=== PATIENT | female | born 1990 | race African-American/Black ===

== ENCOUNTER 2019-05-06 03:38 | Emergency (ER) | payer SELFPAY ==
[~2019-05-06] VITALS: Ht 170.2 cm; Wt 94.3 kg
--- NOTE | 2019-05-06 03:56 | NUR ---
ED Nurse Note: pt presents to ED c/o a cough x 3.5 weeks and is concerned because every time she coughs, she is unable to control her bladder. pt states she went to urgent care recently and was given an inhaler, tessalon perles and abx for the cough. pt also reports that she had a flu test and UA, both were negative. pt denies pain but states she is feeling fatigued and sore.
[2019-05-06 03:57] VITALS: BP 95/64
[2019-05-06] MEDS ORDERED: PROMETHAZINE-C118 M1 ORAL (04:00)
[2019-05-06] MEDS ORDERED: PREDNISONE20 MG ORAL (04:00)
--- NOTE | 2019-05-06 04:01 | Emergency Room Report ---
History of Present Illness General Chief Complaint: Upper Respiratory Illness Source: Patient Present Illness HPI Is a 28-year-old female with history of lupus patient presents with complaint of cough. The cough been ongoing for about 3 weeks now. She had antibiotics not better. She had 2 sets of x-ray was negative. She was given albuterol and cough medicine is not helping. Denies any fever or chills. Coughing to the point where she has some incontinence of her urine. She had urinalysis checked twice was negative for infection. She denies any productive cough. She denies any nausea vomiting or diarrhea. Worse with inspiration. Better with inhaler. Allergies: Coded Allergies: DEXTROAMPHETAMINE (Verified Allergy, Unknown, 05/06/19) GUAIFENESIN (Verified Allergy, Unknown, 05/06/19) Patient History Past Medical History: see triage record, old chart reviewed Past Surgical History: none Pertinent Family History: none Social History: Denies: smoking Last Menstrual Period: 05/03/19 Now: No : 2 Para: 2 Immunizations: other Reviewed Nursing Documentation: PMH: Agreed; PSxH: Agreed Nursing Documentation-PMH Hx Cardiac Problems: No - lupus Review of Systems Eye: Denies: eye pain, blurred vision ENT: Denies: ear pain, nose congestion, throat swelling Respiratory: Reports: cough; Denies: shortness of breath Cardiovascular: Denies: chest pain, palpitations Gastrointestinal: Denies: abdominal pain, diarrhea, nausea, vomiting Musculoskeletal: Denies: back pain, joint pain Skin: Denies: rash Neurological: Denies: headache, numbness Endocrine: Denies: increased thirst, increased urine Hematologic/Lymphatic: Denies: easy bruising All Other Systems: negative except mentioned in HPI Physical Exam Vital Signs Date Time Temp Pulse Resp B/P (MAP) Pulse Ox O2 Delivery O2 Flow Rate FiO2 05/06/19 03:39 97.9 80 16 95/64 (74) 98 Room Air Vitals unremarkable Sp02 EP Interpretation: reviewed, normal General Appearance: well appearing, no apparent distress, alert Head: normocephalic, atraumatic Eyes: bilateral eye PERRL, bilateral eye EOMI ENT: hearing grossly normal, normal pharynx Neck: full range of motion, supple, no meningismus Respiratory: chest non-tender, lungs clear, normal breath sounds Cardiovascular #1: regular rate, rhythm, no murmur Gastrointestinal: normal bowel sounds, non tender, no mass, no organomegaly, no bruit, non-distended Musculoskeletal: back normal, normal range of motion, gait/station normal Psychiatric: mood/affect normal Medical Decision Making Diagnostic Impression: Primary Impression: Cough in adult ER Course Patient with a chronic cough. No evidence of pneumonia. May be inflammatory process. Will put her on steroid. I see no need for more antibiotics. Last Vital Signs Date Time Temp Pulse Resp B/P (MAP) Pulse Ox O2 Delivery O2 Flow Rate FiO2 05/06/19 03:39 97.9 80 16 95/64 (74) 98 Room Air Status: unchanged Disposition: HOME, SELF-CARE Condition: Stable Scripts Prednisone* (PREDNISONE*) 20 Mg Tablet 40 MG ORAL DAILY, #10 TAB Prov: Brice Johnston MD 05/06/19 Codeine/Promethazine Hcl* (PROMETHAZINE-CODEINE SYRUP*) 118 Ml Syrup 5 ML ORAL Q6H PRN for For Cough, #118 ML 0 Refills Prov: Brice Johnston MD 05/06/19 Referrals: NON PHYSICIAN (PCP) Additional Instructions: Follow-up with your doctor in 7 days. If not better, you may need a referral to see a hvac designer. Return if symptoms worsen. Brice Johnston MD May 06, 2019 04:01
[2019-05-06 04:04] VITALS: BP 95/64
--- NOTE | 2019-05-06 04:04 | NUR ---
ED Nurse Note: Pt cleared by ERMD for discharge. DC instructions/prescription was given and explained to pt and verbalized understanding of teachings. All medical deviecs such as ID band removed. Pt is AAO x4, ambulatory and left with all personal belongings.
== END 2019-05-06 04:04 | disposition home or self-care (01) ==
LOC: EMR 03:55
DX: R05 Cough (principal); Z88.8 Allergy status to other drugs, medicaments and biological substances
CPT/HCPCS: 99282